=== PATIENT | female | born 1975 | race Caucasian/White ===

== ENCOUNTER → 2016-09-16 | Outpatient (CLI) | payer OTHER ==
[~2016-09-16] MED LIST: AMITRIPTYLINE H25 MG PO; AMITRYPTYLINE; AMOXICILLIN500 M1 PO; CLARITIN10 MG/TAB; CORTISPORIN-TC10 ML AD; FLEXERIL10 MG PO; ILOTYCIN1 G1 OP; NO MEDICATIONS; VOLTAREN50 MG PO; VOLTAREN75 MG PO
--- NOTE | ~2016-09-16 | US128 ---
[id number] [address] [address] [id number] O MR#: [id number] Acc #: [id number] NAME: JAKOB WAGNER : 1975 SEX: F STUDY DATE/TIME: 09/16/2016 12:39 UNIT: [facility] ROOM: STUDY DESCRIPTION: Thyroid Attending Physician: Cortney Ocampo A.P.R.N. Referring Physician: Cortney Ocampo A.P.R.N. Ordering Physician: Cortney Ocampo A.P.R.N. Primary Care Physician: Cortney Ocampo A.P.R.N. MEDICAL IMAGING REPORT This report is preliminary unless electronic signature is present. EXAM Thyroid ultrasound 09/16/2016 HISTORY Enlarged thyroid for 20 years. Thyroid goiter. Patient states thyroid is increased in size over the past year. FINDINGS The right thyroid lobe measured 4.5 cm x 1.7 cm x 1.3 cm while the left lobe measured 1 cm x 1.6 cm x 4.3 cm. The isthmus measured 4 mm in the AP direction. Both thyroid lobes are homogeneous in echotexture and demonstrate no cystic or solid mass lesions. There are no masses extrinsic to the thyroid. Normal blood flow is seen throughout both thyroid lobes. IMPRESSION Negative thyroid ultrasound. Dictated by... Mane Claudio M.D. THIS IS AN ELECTRONICALLY VERIFIED REPORT Mane Claudio M.D. at 09/17/2016 7:47 AM Lesly TD: 09/16/2016 15:39 JOB #: [id number] MEDICAL IMAGING REPORT Page 1 of 1
== END | disposition home or self-care (01) ==
LOC: SGUS 11:00
DX: E04.9 Nontoxic goiter, unspecified (principal)
CPT/HCPCS: 76536